=== PATIENT | male | born 1970 | race Caucasian/White ===

== ENCOUNTER 2016-11-13 07:35 | Emergency (ER) | payer SELFPAY ==
[2016-11-13] MEDS ORDERED: ASPIRIN 81 MG TAB.CHEW PO ONE (07:44)
[2016-11-13 07:56] LABS: Hematocrit 49.7 % (42.0-52.0); Hemoglobin 17.1 gm/dL (13.5-18.0); Mean Cell Volume 90.5 fl (78-100); Mean Corpuscular Hemoglobin 31.1 pg (27-31); Mean Corpuscular Hgb Conc 34.4 g/dl (32-36); Mean Platelet Volume 9.3 fl (6.0-9.5); Neutrophil # 7.5 K/mm3 (1.3-6.0); Neutrophil % 63.2 % (42-75.0); Platelet Count 328 K/mm3 (150-450); Red Blood Count 5.49 M/mm3 (4.7-6.0); Red Cell Distribution Width 13.1 % (11.5-14.0); White Blood Count 11.9 K/mm3 (4.0-10.5)
[2016-11-13 08:06] LABS: INR 1.03 INR (0.90-1.10); Partial Thrombolplastin Time 27.2 Seconds (24-32); Prothrombin Time (Patient) 10.7 Seconds (9.4-11.4)
--- NOTE | 2016-11-13 08:12 | ERNOTE ---
Chest Pain/Cardiac HPI Chief Complaint: Chest Pain Time Seen by Provider: 11/13/16 08:02 Source: patient, family Exam Limitations: no limitations Immunizations: IMMUNIZATION HX Immunizations Up to Date Yes Allergies/Adverse Reactions: Allergies methadone [Methadone] Allergy (Severe, Verified 11/13/16 07:47) Other Pt states it makes him "crazy" Home Medications: HOME MEDICATIONS Aspirin [Aspirin Chewable] 81 mg PO DAILY #100 tab.chew 01/19/14 [Last Taken Unknown] Naproxen [Naprosyn] 500 mg PO BID #60 tablet 11/13/16 [Last Taken Unknown] Narrative: Pt developed chest pain last night that would not go away. At this juncture he has had pain for approximately 12 hours. He rates the pain at about a 2 and it is worse with deep breath and palpation. It has shifted from the left side to the right side and continues and worsens with deep breath. It is more of an ache than anything else. Timing: other - improving Severity/Quality: mild, aching Chest Pain Radiation: no radiation Activities at Onset: none Modifying Factors - Improves: Present: nothing Modifying Factors - Worsens: Present: nothing Nitro Today/Relief: no nitro taken today Aspirin Treatment Today: 81 mg x 4, provided by ED Associated Symptoms: Present: denies symptoms Prior Chest Pain/Cardiac Workup: Reports: heart attack, cardiac cath Review of Systems - Review of Systems Constitutional: Present: See HPI EYE: Present: no symptoms reported ENT: Present: no symptoms reported Respiratory: Present: no symptoms reported Cardiology: Present: See HPI Gastrointestinal/Abdominal: Present: no symptoms reported Genitourinary: Present: no symptoms reported Musculoskeletal: Present: no symptoms reported Skin: Present: no symptoms reported Neurological: Present: no symptoms reported Endocrine: Present: no symptoms reported Hematologic/Lymphatic: Present: no symptoms reported Psych: Present: no symptoms reported - Patient's Past Medical History Patient History - Medical: Diabetes Type 2 Patient History - Cardiac/Respiratory: Coronary Heart Disease, Hypertension, Hyperlipidemia, Myocardial Infarction Patient History - Cancer: No Hx of Cancer Patient History - Surgical Procedures: Cardiac stent, T & A, Other Patient History - Other: None - Family History Father Family History - Medical: Diabetes Type 2 - Social History Living Situations: spouse Does anyone smoke in the home?: No Smoking Status: Current every day smoker Have you smoked in the past 12 months: Yes - Immunizations Immunizations Up to Date: Yes Physical Exam - Physical Exam General Appearance: Present: wd/wn, alert, mild distress Head Exam: Present: normal inspection Eye Exam: Normal inspection: bilateral, PERRL: bilateral Ears, Nose, Throat: Present: normal ENT inspection, H, normal pharynx Neck: Present: normal inspection, nontender Respiratory: Present: no respiratory distress, normal breath sounds, no accessory muscle use, lungs clear, chest tenderness Cardiovascular/Chest: Present: regular rate, rhythm, no murmur, normal peripheral pulses Gastrointestinal/Abdominal: Present: normal bowel sounds, nontender, nondistended, soft, no organomegaly Rectal Exam: Present: deferred Back Exam: Present: normal inspection, normal range of motion Extremity Exam: Present: normal inspection, non-tender, no edema, normal range of motion Neurological Exam: Present: alert, oriented, normal mood/affect Skin Exam: Present: normal color, warm/dry Lymphatic Exam: Present: no adenopathy ED Progress - Results and Orders Patient's Lab Results:: I have reviewed the patient's lab results. - Vital Signs Patient's Vital Signs:: I have reviewed the patient's vital signs. Vital Signs: Vital Signs 11/13/16 11/13/16 07:44 07:47 Temperature 36.7 C Pulse Rate 74 68 Respiratory 12 Rate Blood Pressure 131/85 O2 Sat by Pulse 96 Oximetry - EKG EKG: NSR - X-Ray X-Ray #1 X-Ray: chest Interpretation: Reviewed by me - Progress/Reassessment Chief Complaint: Chest Pain Plan - Plan Plan: Patient has had chest pain for 12 hours as a negative troponin, a normal EKG and reproducible chest pain on palpation. I do not believe this is cardiac in origin at this point, however the patient would benefit from an outpatient stress test. Patient states he has no insurance and is not quite sure how to arrange that. Patient will call Dr. Zhou, who he has seen in the past and try to come up with a plan. Departure - Departure Clinical Impression: Chest wall pain Disposition: Home self-care Condition: Good Instructions: Chest Wall Pain, [id number] Additional Instructions: call Dr. Zhou for an appt Referrals: Carl Zhou MD [Associate] - Prescriptions: Naproxen [Naprosyn] 500 mg PO BID #60 tablet
[2016-11-13] MEDS ORDERED: ASPIRIN 81 MG TAB.CHEW ONE (08:21)
[2016-11-13 09:48] LABS: ALT 24 U/L (19-67); AST 17 U/L (0-48); Albumin * 3.6 gm/dl (3.4-5.0); Alkaline Phosphatase * 59 U/L (50-170); Anion Gap 14.9 mmol/L (6.8-13.8); Bilirubin, Total 0.3 mg/dL (0.0-1.1); Blood Urea Nitrogen 12 mg/dL (6-23); Ca. Corrected For Albumin 8.7 mg/dL (8.4-10.2); Calcium * 8.7 mg/dL (7.9-10.9); Chloride 104 mmol/L (97-106); Glucose * 105 mg/dL (70-110); Potassium 3.9 mmol/L (3.4-4.6); Sodium 139 mmol/L (132-142); Troponin I Less than 0.017 ng/ml (0.00-0.10)
[2016-11-13 10:21] VITALS: BP 107/57
== END 2016-11-13 10:23 | disposition home or self-care (01) ==
LOC: ER 07:35
DX: R07.89 Other chest pain (principal); F17.200 Nicotine dependence, unspecified, uncomplicated

== ENCOUNTER 2016-12-05 11:13 | Emergency (ER) | payer SELFPAY ==
[2016-12-05] MEDS ORDERED: KETOROLAC TROMETHAMINE 60 MG/2 ML VIAL IM ONE ×2 (11:37→11:38)
--- NOTE | 2016-12-05 11:37 | ERNOTE ---
Back Pain ER HPI Date of Service: 12/05/16 Presenting Symptoms: injury/pain to back Time Seen by Provider: 12/05/16 11:24 Source: patient Exam Limitations: no limitations Immunizations: IMMUNIZATION HX Immunizations Up to Date Yes History of Influenza Vaccine No Hx Pneumococcal Vaccination No Allergies/Adverse Reactions: Allergies methadone [Methadone] Allergy (Severe, Verified 12/05/16 11:19) Other Pt states it makes him "crazy" Home Medications: HOME MEDICATIONS Aspirin [Aspirin Chewable] 81 mg PO DAILY #100 tab.chew 01/19/14 [Last Taken Unknown] Cyclobenzaprine HCl [Flexeril] 10 mg PO TID PRN #30 tab 12/05/16 [Last Taken Unknown] Naproxen [Naprosyn] 500 mg PO BID PRN #60 tab 12/05/16 [Last Taken Unknown] Narrative: Pt. comes in with c/o B flank pain and R groin pain for three days. Pt. denies any NVD, abd pain, fever, SOB, numbness tingling but does state that he has had some mild dysuria. Pt. states taht he has had kidney stones in the past but this is not similar and he denies any injury. Pt. states that movement exacerbates the pain, pressure alleviates the pain some, and Tylenol did nothing for the pain. Review of Systems - Review of Systems Constitutional: Present: no symptoms reported. Absent: recent illness, fever, chills, weakness, fatigue, malaise EYE: Present: no symptoms reported ENT: Present: no symptoms reported Respiratory: Present: no symptoms reported. Absent: shortness of breath, cough , wheezing Cardiology: Present: no symptoms reported. Absent: chest pain, palpitations, edema Gastrointestinal/Abdominal: Present: no symptoms reported. Absent: nausea, vomiting, diarrhea Genitourinary: Present: no symptoms reported. Absent: frequency, decreased urinary output Musculoskeletal: Present: back pain - B lower paraspinous. Absent: muscle stiffness, neck pain, joint pain Skin: Present: no symptoms reported Neurological: Present: no symptoms reported. Absent: headache, dizziness/light- headedness, numbness, tingling All Other Systems: All systems neg except as marked - Patient's Past Medical History Patient History - Medical: Diabetes Type 2 Patient History - Cardiac/Respiratory: Coronary Heart Disease, Hypertension, Hyperlipidemia, Myocardial Infarction Patient History - Cancer: No Hx of Cancer Patient History - Surgical Procedures: Cardiac stent, T & A, Other Patient History - Other: None - Family History Father Family History - Medical: Diabetes Type 2 - Social History Living Situations: home Abuse History: No History of abuse Psych History: No pertinent hx Does anyone smoke in the home?: No Smoking Status: Current every day smoker Alcohol Use: none Drug Use: none - Immunizations Immunizations Up to Date: Yes Hx Pneumococcal Vaccination: No History of Influenza Vaccine: No Physical Exam - Physical Exam General Appearance: Present: wd/wn, alert, no apparent distress Head Exam: Present: normal inspection, no evidence of injury Eye Exam: Normal inspection: bilateral Neck: Present: normal inspection, nontender. Absent: lymphadenopathy (R), lymphadenopathy (L) Respiratory: Present: no respiratory distress, normal breath sounds, no accessory muscle use, chest nontender, lungs clear Cardiovascular/Chest: Present: regular rate, rhythm, no murmur, normal peripheral pulses Back Exam: Present: normal range of motion, no CVA tenderness, no vertebral tenderness, muscle spasm - B paraspinous L3-S1 Extremity Exam: Present: normal inspection, non-tender, normal range of motion, no edema Neurological Exam: Present: alert, oriented, normal mood/affect, no motor/ sensory deficits Skin Exam: Present: normal color, warm/dry. Absent: pallor, skin rash ED Progress - Results and Orders Patient's Lab Results:: I have reviewed the patient's lab results. - Vital Signs Patient's Vital Signs:: I have reviewed the patient's vital signs. Vital Signs: Vital Signs 12/05/16 11:16 Temperature 35.9 C L Pulse Rate 54 L Respiratory 16 Rate Blood Pressure 127/85 O2 Sat by Pulse 98 Oximetry - X-Ray X-Ray #1 X-Ray: lumbosacral Interpretation: Reviewed by me X-ray Comments: L5 S1 disc disease - Progress/Reassessment Chief Complaint: Back Pain Departure Clinical Impression: Degenerative disc disease at L5-S1 level - Departure Disposition: Home self-care Condition: Good Instructions: Degenerative Disk Disease Additional Instructions: Please follow up with primary provider in 2-3 days for further evaluation and medication if needed. Prescriptions: Cyclobenzaprine HCl [Flexeril] 10 mg PO TID PRN #30 tab PRN Reason: MUSCLE SPASMS Naproxen [Naprosyn] 500 mg PO BID PRN #60 tab PRN Reason: Pain
[2016-12-05 11:44] LABS: Urine Appearance Clear; Urine Bilirubin Negative (NEGATIVE); Urine Blood Negative /ul (NEGATIVE); Urine Color Yellow; Urine Ketone Negative (NEGATIVE); Urine Nitrite Negative (NEGATIVE); Urine Protein Negative (NEGATIVE); Urine Specific Gravity 1.025 SP.GR. (1.005-1.030); Urine Urobilinogen Normal (NORMAL)
[2016-12-05 11:45] LABS: Urine Bacteria None Seen; Urine RBC None Seen /hpf (0-5); Urine WBC None Seen /hpf (0-5)
[2016-12-05] MEDS ORDERED: ORPHENADRINE CITRATE 30 MG/ML VIAL IM ONE (12:18)
[2016-12-05] MEDS ORDERED: ORPHENADRINE CITRATE 30 MG/ML VIAL ONE (12:59)
[2016-12-05 13:42] VITALS: BP 144/94
== END 2016-12-05 13:21 | disposition home or self-care (01) ==
LOC: ER 11:13
DX: F17.200 Nicotine dependence, unspecified, uncomplicated (principal); M51.37 Other intervertebral disc degeneration, lumbosacral region

== ENCOUNTER 2016-12-08 16:22 | Emergency (ER) | payer SELFPAY ==
[2016-12-08 16:32] VITALS: BP 139/88
[2016-12-08] MEDS ORDERED: HYDROcodone/ACETAMINOPHEN 1 EACH TABLET PO ONE (16:52)
--- NOTE | 2016-12-08 16:56 | ERNOTE ---
Back Pain ER HPI Date of Service: 12/08/16 Presenting Symptoms: injury/pain to back Time Seen by Provider: 12/08/16 16:35 Source: patient, family, RN notes reviewed, past records Exam Limitations: no limitations Immunizations: IMMUNIZATION HX Immunizations Up to Date Yes History of Influenza Vaccine No Hx Pneumococcal Vaccination No Allergies/Adverse Reactions: Allergies methadone [Methadone] Allergy (Severe, Verified 12/08/16 16:27) Other Pt states it makes him "crazy" Home Medications: HOME MEDICATIONS Aspirin [Aspirin Chewable] 81 mg PO DAILY #100 tab.chew 01/19/14 [Last Taken Unknown] Cyclobenzaprine HCl [Flexeril] 10 mg PO TID PRN #30 tab 12/08/16 [Last Taken Unknown] HYDROcodone/ACETAMINOPHEN [[place] 5-325] 1 - 2 tab PO Q6H PRN #20 tab 12/08/16 [ Last Taken Unknown] Naproxen [Naprosyn] 500 mg PO BID PRN #60 tab 12/08/16 [Last Taken Unknown] Narrative: 46 year old male returns to the ED after being seen on 12/05/16 with low back pain. He was prescribed Flexeril and Naproxen and reports he is not getting any relief with these medications. An xray was done and showed degenerative disk disease at L5-S1. He had problems with low back pain several years ago and was referred to a natural resources specialist. He was not a candidate for surgery at that time. The pain resolved and he had not had any problems with it until a few days ago. His pain is located across the lower lumbar region and radiates into his right groin. He has had kidney stones in the past and states that this does not feel like a stone. He has had urinary frequency, but he denies any dysuria or hematuria. Timing: Reports: constant Quality/Severity: Reports: severe, aching Location of pain: Reports: lower back, other - groin Activities at Onset: Reports: none Recent Injury?: Reports: possibly Possible Precipitating Factor: Reports: lifting, turning/bending Modifying Factors - (Improves): Reports: supine position Modifying Factors - (Worsens): Reports: movement flexion Associated Symptoms: Denies: fever/chills, sweating, constipation/incontinence, nausea/vomiting, problems urinating, difficulty walking, lightheadedness, numbess/weakness in legs Prior Treament: Reports: recently seen, treated by physician, similar symptoms before Review of Systems - Review of Systems Constitutional: Present: See HPI EYE: Present: no symptoms reported ENT: Present: no symptoms reported Respiratory: Absent: shortness of breath, cough Cardiology: Absent: chest pain, edema Gastrointestinal/Abdominal: Present: See HPI Genitourinary: Present: See HPI Musculoskeletal: Present: back pain, muscle pain. Absent: joint pain, joint swelling Skin: Absent: rash, lesions, lumps Neurological: Absent: headache, dizziness/light-headedness Endocrine: Present: no symptoms reported Hematologic/Lymphatic: Present: no symptoms reported Psych: Present: no symptoms reported - Patient's Past Medical History Patient History - Medical: Diabetes Type 2 Patient History - Cardiac/Respiratory: Coronary Heart Disease, Hypertension, Hyperlipidemia, Myocardial Infarction Patient History - Cancer: No Hx of Cancer Patient History - Surgical Procedures: Cardiac stent, T & A, Other Patient History - Other: None - Family History Father Family History - Medical: Diabetes Type 2 - Social History Living Situations: significant other Abuse History: No History of abuse Psych History: No pertinent hx Smoking Status: Current every day smoker Have you smoked in the past 12 months: Yes Do you dip or chew tobacco: No - Immunizations Immunizations Up to Date: Yes Hx Pneumococcal Vaccination: No History of Influenza Vaccine: No Physical Exam - Physical Exam General Appearance: Present: wd/wn, alert, mild distress, other - appears uncomfortable Neck: Present: normal inspection, nontender, supple Respiratory: Present: no respiratory distress, normal breath sounds, no accessory muscle use, lungs clear Cardiovascular/Chest: Present: regular rate, rhythm, no murmur Back Exam: Present: no CVA tenderness, no vertebral tenderness, other - paraspinal muscle tenderness throughout the lower lumbar region Extremity Exam: Present: normal inspection, normal range of motion, no edema, other - normal strength in lower extremities Neurological Exam: Present: alert, oriented, normal mood/affect, no motor/ sensory deficits Skin Exam: Present: normal color, warm/dry ED Progress - Vital Signs Patient's Vital Signs:: I have reviewed the patient's vital signs. Vital Signs: Vital Signs 12/08/16 16:27 Temperature 36.1 C L Pulse Rate 76 Respiratory 18 Rate Blood Pressure 139/88 O2 Sat by Pulse 97 Oximetry - Progress/Reassessment Chief Complaint: Back Pain Progress:: Unchanged Departure Clinical Impression: Degenerative disc disease at L5-S1 level Low back pain Qualifiers: Chronicity: acute Back pain laterality: bilateral Sciatica presence: without sciatica Qualified Code(s): M54.5 - Low back pain - Departure Disposition: Home Follow Up Needed Condition: Stable Instructions: Back Pain, Adult, Form - Excuse from Work, School, or Physical Activity Additional Instructions: Continue Naproxen twice a day Take Flexeril at least at bedtime Establish with a primary care provider and/or contact Dr. Barraza for follow up Prescriptions: Cyclobenzaprine HCl [Flexeril] 10 mg PO TID PRN #30 tab PRN Reason: MUSCLE SPASMS HYDROcodone/ACETAMINOPHEN [Occidental 5-325] 1 - 2 tab PO Q6H PRN #20 tab PRN Reason: Pain Naproxen [Naprosyn] 500 mg PO BID PRN #60 tab PRN Reason: Pain
[2016-12-08] MEDS ORDERED: HYDROcodone/ACETAMINOPHEN 1 EACH TABLET ONE (16:57)
== END 2016-12-08 17:03 | disposition home or self-care (01) ==
LOC: ER 16:22
DX: M51.37 Other intervertebral disc degeneration, lumbosacral region (principal); M54.5 Low back pain; F17.200 Nicotine dependence, unspecified, uncomplicated

== ENCOUNTER 2016-12-14 18:11 | Emergency (ER) | payer SELFPAY ==
[2016-12-14] MEDS ORDERED: KETOROLAC TROMETHAMINE 30 MG/ML VIAL IV ONE (18:31)
[2016-12-14] MEDS ORDERED: ONDANSETRON HCL/PF 2 MG/ML VIAL IV ONE (18:31)
[2016-12-14] MEDS ORDERED: NORMAL SALINE 1,000 ML IV ONE (18:31)
[2016-12-14] MEDS ORDERED: ONDANSETRON HCL/PF 2 MG/ML VIAL ONE (18:38)
[2016-12-14] MEDS ORDERED: KETOROLAC TROMETHAMINE 30 MG/ML VIAL ONE (18:38)
[2016-12-14 18:49] LABS: Hematocrit 50.2 % (42.0-52.0); Hemoglobin 17.6 gm/dL (13.5-18.0); Mean Cell Volume 88.7 fl (78-100); Mean Corpuscular Hemoglobin 31.1 pg (27-31); Mean Corpuscular Hgb Conc 35.1 g/dl (32-36); Mean Platelet Volume 9.2 fl (6.0-9.5); Neutrophil # 12.1 K/mm3 (1.3-6.0); Neutrophil % 73.8 % (42-75.0); Platelet Count 317 K/mm3 (150-450); Red Blood Count 5.66 M/mm3 (4.7-6.0); Red Cell Distribution Width 13.3 % (11.5-14.0); White Blood Count 16.4 K/mm3 (4.0-10.5)
[2016-12-14 19:02] LABS: Urine Appearance Clear; Urine Bilirubin Negative (NEGATIVE); Urine Blood Negative /ul (NEGATIVE); Urine Color Dark Yellow; Urine Ketone Negative (NEGATIVE); Urine Nitrite Negative (NEGATIVE); Urine Protein Negative (NEGATIVE); Urine Urobilinogen 8 EU/dl (NORMAL)
[2016-12-14 19:03] LABS: Albumin * 3.6 gm/dl (3.4-5.0); Anion Gap 16.2 mmol/L (6.8-13.8); BUN/Creatinine Ratio 10.9 (9.0-21.6); Bilirubin, Total 0.8 mg/dL (0.0-1.1); Ca. Corrected For Albumin 9.3 mg/dL (8.4-10.2); Calcium * 9.3 mg/dL (7.9-10.9); Carbon Dioxide 23.6 mmol/L (24-32.6); Potassium 3.8 mmol/L (3.4-4.6); Total Protein 8.6 gm/dL (6.2-8.2)
[2016-12-14 19:04] LABS: Urine Bacteria None Seen; Urine RBC None Seen /hpf (0-5); Urine WBC 0-5 /hpf (0-5)
[2016-12-14] MEDS ORDERED: MORPHINE SULFATE 4 MG/ML SYRG IV ONE (19:14)
[2016-12-14] MEDS ORDERED: MORPHINE SULFATE 4 MG/ML SYRG ONE (19:15)
--- NOTE | 2016-12-14 19:15 | ERNOTE ---
ER Male HPI Date of Service: 12/14/16 Stated Complaint: TESTICAL ISSUE ER Male: testicular pain Time Seen by Provider: 12/14/16 18:25 Source: patient, family, RN notes reviewed, past records Exam Limitations: no limitations Immunizations: IMMUNIZATION HX Immunizations Up to Date Yes History of Influenza Vaccine No Hx Pneumococcal Vaccination No Allergies/Adverse Reactions: Allergies methadone [Methadone] Allergy (Severe, Verified 12/14/16 18:23) Other Pt states it makes him "crazy" Home Medications: HOME MEDICATIONS Aspirin [Aspirin Chewable] 81 mg PO DAILY #100 tab.chew 01/19/14 [Last Taken Unknown] Cyclobenzaprine HCl [Flexeril] 10 mg PO TID PRN #30 tab 12/08/16 [Last Taken Unknown] HYDROcodone/ACETAMINOPHEN [[place] 5-325] 1 - 2 tab PO Q6H PRN #20 tab 12/14/16 [ Last Taken Unknown] Ibuprofen [Motrin] 600 mg PO Q6H PRN #40 tab 12/14/16 [Last Taken Unknown] Ondansetron [Zofran Odt] 8 mg PO Q8H PRN #12 tab 12/14/16 [Last Taken Unknown] - Pain Score Pain Score #1 Pain Score: 10 - Left scrotum - History of Present Illness Narrative: 46 year old male ambulatory to the ED for left scrotal pain and swelling that began gradually approximately a week ago. I saw the patient for low back pain on 12/18. He was reporting pain in his scrotum at that time but denied any swelling or urinary complaints. The pain was thought to be radicular from his back. He was seen in [place] last night. A UA was done and he was told he had an infection and started on Cipro. No other labs or an ultrasound were done. He reports that the swelling has gotten significantly worse today, as well as the pain. Timing: Present: getting worse Quality: Present: severe Onset Location: Present: scrotal Radiation: Present: none Prior Abdominal Problems: Present: none Prior Treatment: Present: recently seen, treated by physician, currently on antibiotics Review of Systems - Review of Systems Constitutional: Present: malaise. Absent: fever, chills EYE: Present: no symptoms reported ENT: Present: no symptoms reported Respiratory: Absent: shortness of breath, cough Cardiology: Absent: chest pain, syncope Gastrointestinal/Abdominal: Present: nausea, constipation, abdominal pain. Absent: vomiting, diarrhea Genitourinary: Present: pain. Absent: frequency, hematuria, discharge Musculoskeletal: Present: back pain. Absent: joint pain Skin: Present: change in color. Absent: rash, lesions, lumps Neurological: Absent: headache, dizziness/light-headedness Endocrine: Present: no symptoms reported Hematologic/Lymphatic: Present: no symptoms reported Psych: Present: no symptoms reported - Patient's Past Medical History Patient History - Medical: Diabetes Type 2 Patient History - Cardiac/Respiratory: Coronary Heart Disease, Hypertension, Hyperlipidemia, Myocardial Infarction Patient History - Cancer: No Hx of Cancer Patient History - Surgical Procedures: Cardiac stent, T & A, Other Patient History - Other: None - Family History Father Family History - Medical: Diabetes Type 2 - Social History Living Situations: home Abuse History: No History of abuse Psych History: No pertinent hx Smoking Status: Current every day smoker Cigarettes Packs Per Day: 1.5 Patient requests Smoking Cessation Consult: No Initiate information on Smoking Cessation: No Alcohol Use: none Drug Use: none - Immunizations Immunizations Up to Date: Yes Hx Pneumococcal Vaccination: No History of Influenza Vaccine: No Physical Exam - Physical Exam General Appearance: Present: wd/wn, alert, moderate distress Neck: Present: normal inspection, nontender, supple Respiratory: Present: no respiratory distress, normal breath sounds, no accessory muscle use, lungs clear Cardiovascular/Chest: Present: regular rate, rhythm, no murmur, normal peripheral pulses Gastrointestinal/Abdominal: Present: normal bowel sounds, nondistended, soft, tenderness - diffuse. Absent: mass, hernia Male Genitals Exam: Present: erythema - Left scrotum, scrotum tenderness (L), testicular tenderness (L), other - moderate edema to left scrotum. Absent: lesions, urethral discharge Extremity Exam: Present: normal inspection, normal range of motion, no edema Neurological Exam: Present: alert, oriented, normal mood/affect, no motor/ sensory deficits Skin Exam: Present: normal color, warm/dry ED Progress - Results and Orders Patient's Lab Results:: I have reviewed the patient's lab results. - Vital Signs Patient's Vital Signs:: I have reviewed the patient's vital signs. Vital Signs: Vital Signs 12/14/16 18:19 Temperature 36.6 C Pulse Rate 98 Respiratory 18 Rate Blood Pressure 146/82 O2 Sat by Pulse 100 Oximetry - X-Ray X-Ray #1 X-Ray: abdomen Interpretation: Reviewed by me X-ray Comments: Calcifications suggestive of cholelithiasis, otherwise unremarkable - CT/Ultrasound CT/Ultrasound Narrative: US of scrotum: Testes unremarkable bilaterally with doppler flow seen in both Increased doppler flow in left epididymis consistent with epididymitis Bilateral hydroceles - larger on left Bilateral varicoceles (per [facility] preliminary report) - Progress/Reassessment Chief Complaint: Genitourinary Problem Progress:: Improved Departure Clinical Impression: Epididymitis, left - Departure Disposition: Home Follow Up Needed Condition: Stable Instructions: Epididymitis Additional Instructions: Continue Cipro Take ibuprofen routinely every 6 hours for inflammation Ice and elevate scrotum Prescriptions: HYDROcodone/ACETAMINOPHEN [[place] 5-325] 1 - 2 tab PO Q6H PRN #20 tab PRN Reason: Pain Ibuprofen [Motrin] 600 mg PO Q6H PRN #40 tab PRN Reason: Pain Ondansetron [Zofran Odt] 8 mg PO Q8H PRN #12 tab PRN Reason: Nausea
[2016-12-14] MEDS ORDERED: LEVOFLOXACIN/D5W 750 MG/150 ML BAG IV ONE (21:16)
[2016-12-15 00:10] VITALS: BP 109/56
== END 2016-12-14 22:58 | disposition home or self-care (01) ==
LOC: ER 18:11
DX: N45.1 Epididymitis (principal); F17.200 Nicotine dependence, unspecified, uncomplicated
CPT/HCPCS: 36415; 74020; 76870; 80053; 81001; 85025; 96365; 96366; 96375; 99284; J2405